=== PATIENT | male | born 1970 | race Caucasian/White ===

== ENCOUNTER 2017-04-02 07:47 | Emergency (ER) | payer OTHER ==
[2017-04-02 07:53] VITALS: BP 165/103
[2017-04-02] MEDS ORDERED: IBUPROFEN 800 MG TABLET PO ONE (08:10)
[2017-04-02] MEDS ORDERED: LIDOCAINE 1% INJ-PF (10 MG/ML) 30 ML SDV INJ ONE (08:17)
--- NOTE | 2017-04-02 08:24 | ER Document Report ---
ED General - General Chief Complaint: Foot Pain Stated Complaint: LEFT FOOT PAIN Time Seen by Provider: 04/02/17 08:09 Mode of Arrival: Ambulatory Information source: Patient Notes: 47-year-old male presents with complaints of left foot pain. Patient notes he landed on his foot, was swollen, saw his pcp who told him it was normal with a fracture. TRAVEL OUTSIDE OF THE [place] IN LAST 30 DAYS: No - HPI Onset: Last week Onset/Duration: Sudden, Persistent Quality of pain: Achy Severity: Mild Pain Level: 2 Associated symptoms: Other Exacerbated by: Movement, Walking Relieved by: Denies Similar symptoms previously: Yes Recently seen / treated by doctor: Yes - Related Data Allergies/Adverse Reactions: No Known Allergies Allergy (Verified 04/02/17 08:58) Past Medical History - Social History Smoking Status: Current Every Day Smoker Cigarette use (# per day): Yes Chew tobacco use (# tins/day): No Smoking Education Provided: No Family History: Reviewed & Not Pertinent Renal/ Medical History: Denies: Hx Peritoneal Dialysis Review of Systems - Review of Systems Notes: REVIEW OF SYSTEMS: CONSTITUTIONAL : Denies fever, chills, or sweats. Denies recent illness. EENT: Denies eye, ear, throat, or mouth pain or symptoms. Denies nasal or sinus congestion or discharge. Denies throat, tongue, or mouth swelling or difficulty swallowing. CARDIOVASCULAR: Denies chest pain. Denies palpitations or racing or irregular heart beat. Denies ankle edema. RESPIRATORY: Denies cough, cold, or chest congestion. Denies shortness of breath, difficulty breathing, or wheezing. GASTROINTESTINAL: Denies abdominal pain or distention. Denies nausea, vomiting , or diarrhea. Denies blood in vomitus, stools, or per rectum. Denies black, tarry stools. Denies constipation. GENITOURINARY: Denies difficulty urinating, painful urination, burning, frequency, blood in urine, or discharge. MUSCULOSKELETAL: left foot pain SKIN: Denies rash, lesions or sores. HEMATOLOGIC : Denies easy bruising or bleeding. LYMPHATIC: Denies swollen, enlarged glands. NEUROLOGICAL: Denies confusion or altered mental status. Denies passing out or loss of consciousness. Denies dizziness or lightheadedness. Denies headache. Denies weakness or paralysis or loss of use of either side. Denies problems with gait or speech. Denies sensory loss, numbness, or tingling. Denies seizures. PSYCHIATRIC: Denies anxiety or stress. Denies depression, suicidal ideation, or homicidal ideation. ALL OTHER SYSTEMS REVIEWED AND NEGATIVE. Dictation was performed using [employer] voice recognition software PHYSICAL EXAMINATION: GENERAL: Well-appearing, well-nourished and in no acute distress. HEAD: Atraumatic, normocephalic. EYES: Pupils equal round and reactive to light, extraocular movements intact, sclera anicteric, conjunctiva are normal. ENT: Nares patent, oropharynx clear without exudates. Moist mucous membranes. NECK: Normal range of motion, supple without lymphadenopathy LUNGS: Breath sounds clear to auscultation bilaterally and equal. No wheezes rales or rhonchi. HEART: Regular rate and rhythm without murmurs ABDOMEN: Soft, nontender, nondistended abdomen. No guarding, no rebound. No masses appreciated. Musculoskeletal: Left foot is swollen NEUROLOGICAL: Cranial nerves grossly intact. Normal speech, normal gait. Normal sensory, motor exams PSYCH: Normal mood, normal affect. SKIN: There is drainage from the lateral aspect of the third digit of the left foot with erythema streaking to the base of the digit Physical Exam - Vital signs Vitals: Temp Pulse Resp BP Pulse Ox 97.8 F 79 18 165/103 H 99 04/02/17 07:51 04/02/17 07:51 04/02/17 07:51 04/02/17 07:51 04/02/17 07:51 Course - Re-evaluation Re-evalutation: 04/02/17 08:26 It appears patient was told he had a fracture but no intervention was performed which is a bit confusing, more importantly the patient does have an infectious process as well, x-ray has been ordered to rule out fracture as well as osteomyelitis 04/02/17 09:09 Area was incised and drained large amount of pus was noted, I will have the patient check back with me in 2 days for reevaluation of his toe No obvious sign of osteomyelitis at this time After performing a Medical Screening Examination, I estimate there is LOW risk for OPEN FRACTURE, COMPARTMENT SYNDROME, TENDON RUPTURE, ACUTE NEUROVASCULAR INJURY, or RETAINED FOREIGN BODY, thus I consider the discharge disposition reasonable. Also, there is no evidence or peritonitis, sepsis, or toxicity. I have reevaluated this patient multiple times and no significant life threatening changes are noted. The patient and I have discussed the diagnosis and risks, and we agree with discharging home with close follow-up with the understanding that symptoms and presentations can change. We also discussed returning to the Emergency Department immediately if new or worsening symptoms occur. We have discussed the symptoms which are most concerning (e.g., changing or worsening pain, fever, numbness, weakness, cool or painful digits) that necessitate immediate return. - Vital Signs Vital signs: Temp Pulse Resp BP Pulse Ox 97.8 F 79 18 165/103 H 99 04/02/17 07:51 04/02/17 07:51 04/02/17 07:51 04/02/17 07:51 04/02/17 07:51 - Diagnostic Test Radiology reviewed: Image reviewed, Reports reviewed - No fracture no osteomyelitis Procedures - Incision and Drainage Left 3rd digit Time completed: 09:10 Type: Simple Anesthetic type: 1% Lidocaine mL's of anesthetic: 10 Blade size: 11 I&D procedure: Sterile dressing applied Incision Method: Incision made by scalpel Amount/type of drainage: Large amount of thick pus Discharge - Discharge Clinical Impression: Abscess of toe of left foot Condition: Stable Disposition: HOME, SELF-CARE Instructions: Abscess ([facility]), Post Incision and Drainage Prescriptions: Cephalexin Monohydrate [Keflex 500 mg Capsule] 500 mg PO QID #40 capsule Oxycodone HCl/Acetaminophen [Percocet 5-325 mg Tablet] 1 - 2 tab PO Q4H PRN #15 tablet PRN Reason: Sulfamethoxazole/Trimethoprim [Bactrim Ds Tablet] 2 each PO BID #40 tablet Referrals: MONICA SPANGLER MD [ACTIVE STAFF] - Follow up in 3-5 days
[2017-04-02] MEDS ORDERED: OXYCODONE-ACETAMINOPHEN 5-325 MG TABLET PO ONE (08:29)
--- NOTE | 2017-04-02 08:55 | RADIOLOGY REPORT (SQ) ---
EXAM DESCRIPTION: FOOT LEFT COMPLETE COMPLETED DATE/TIME: 04/02/2017 8:33 am REASON FOR STUDY: left foot injury vanessa, normal xray read COMPARISON: None. NUMBER OF VIEWS: Three views. TECHNIQUE: AP, lateral and oblique radiographic images acquired of the left foot. LIMITATIONS: None. FINDINGS: MINERALIZATION: Normal. BONES: No acute fracture or dislocation. No worrisome bone lesions. JOINTS: Tiny loose body 1 mm in size, 2nd toes distal interphalangeal joint. Mild joint space narrow ing and bony spurring at the 1st metatarsophalangeal joint. SOFT TISSUES: No soft tissue swelling. No foreign body. OTHER: Small dorsal calcaneal spur at the Achilles attachment. IMPRESSION: No acute fracture left 3rd toe. TECHNICAL DOCUMENTATION: JOB ID: [id number] [employer]- All Rights Reserved
== END 2017-04-02 09:29 | disposition home or self-care (01) ==
LOC: ER 07:47
PROC: 0H9NXZZ Drainage of Left Foot Skin, External Approach (ICD-10-PCS; principal; 2017-04-02)
DX: L02.612 Cutaneous abscess of left foot (principal); M79.672 Pain in left foot; M79.89 Other specified soft tissue disorders; F17.210 Nicotine dependence, cigarettes, uncomplicated
CPT/HCPCS: 99283; 73630; 10060; J3490